=== PATIENT | male | born 1975 | race Caucasian/White ===

== ENCOUNTER 2017-09-26 21:47 | Emergency (ER) | payer OTHER, SELFPAY ==
[2017-09-26 21:50] VITALS: BP 137/87; PULSE 89; RESP 20; TEMP 36.6; O2SAT 97; BMI 33.5
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
== END 2017-09-27 00:16 ==
PROVIDERS: Emergency Provider Emergency Medicine
DX: S30.0XXA Contusion of lower back and pelvis, initial encounter (principal); V18.2XXA Unspecified pedal cyclist injured in noncollision transport accident in nontraffic accident, initial encounter
CPT/HCPCS: 99282

== ENCOUNTER → 2020-07-31 06:50 | Outpatient (CLI) | payer OTHER, SELFPAY ==
--- NOTE | 2020-07-31 06:52 | DI.MRI.S_ITS ---
PROCEDURE: MR KNEE LT WO CON INDICATIONS: Unspecified superficial injury of left knee TECHNIQUE: Noncontrast sagittal PD fast spin echo and T2 fast spin echo with fat saturation, sagittal 3-D FLASH with fat saturation; coronal T1 spin echo and PD fast spin echo with fat saturation, and axial PD fast spin echo with fat saturation through the knee. COMPARISON: [facility], MR, MR KNEE LEFT WITHOUT CONTRAST, 01/20/2018, 7:21. FINDINGS: Image quality: Excellent. Menisci: The medial and lateral menisci demonstrate normal morphology and internal signal. The meniscal root ligaments appear intact. Cruciate ligaments: Thickened proximal ACL near its femoral insertion is seen with subtle intrasubstance T2 hyperintense signal concerning for low-grade partial-thickness tear. No full-thickness ACL rupture. PCL is intact. Medial structures: The medial collateral ligament appears intact. The posterior oblique ligament, semimembranosus tendon insertions, oblique popliteal ligament, and meniscocapsular junction appear intact. Visualized portions of the pes anserinus tendons appear normal. No abnormal bursal fluid. Lateral structures: The lateral collateral ligament, long and short heads of the biceps femoris tendon appear intact. The popliteus tendon appears normal; the popliteofibular ligament appears intact. The posterosuperior and anteroinferior popliteomeniscal fascicles appear intact. The arcuate and fabellofibular ligaments appear intact, on either side of the lateral inferior geniculate artery. Iliotibial band appears normal. Anterior structures: The quadriceps and patellar tendons appear intact. Patellar alignment is normal. No femoral trochlear dysplasia or ventral trochlear prominence. No edema in the infrapatellar fat pad. Bones and cartilage: There is moderate grade chondromalacia with underlying chronic appearing small osteochondral lesion involving anterior weight-bearing portion of medial femoral condyle new since 2018 study. Significant marrow edema involving posterior and lateral corner of proximal tibia extending to posterior portion of lateral tibial plateau with subtle internal linear hypointense signal concerning for subcortical fracture. No other fracture or dislocation is seen. Rest of the articulating cartilages are grossly intact. Joint space: There is small amount of joint fluid, no gross intra-articular loose body. No Mckeon's cyst. Normal appearing synovial plicae are incidentally noted. IMPRESSION: 1. No evidence of focal meniscal tear. 2. Marrow edema involving posterior lateral corner of proximal tibia extending to posterior aspect of lateral tibial plateau with underlying linear hypointense signal within the area of edema . Finding is suggestive of nondisplaced subcortical fracture in this area. 3. 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 4. Suggestion of sprain/low-grade partial-thickness tear involving proximal anterior cruciate ligament near its femoral insertion. No full-thickness ACL rupture. PCL is intact. Dictated by: Rahat Holbrook M.D. on 07/31/2020 at 8:31 Approved by: Rahat Holbrook M.D. on 07/31/2020 at 9:12
== END ==
PROVIDERS: Referring Provider Nurse Practitioner Family; Visit Provider Nurse Practitioner Family
DX: M94.262 Chondromalacia, left knee (principal); R60.0 Localized edema
CPT/HCPCS: 73721